=== PATIENT | female | born 1950 | race Caucasian/White ===

== ENCOUNTER 2016-08-27 11:56 | Emergency (ER) | payer OTHER ==
[~2016-08-27] VITALS: Ht 154.9 cm; Wt 71.5 kg
[~2016-08-27 11:56] MED LIST: CLON-412; OMEPRAZOLE
[2016-08-27 12:00] VITALS: Ht 154.9 cm; Wt 71.5 kg
[2016-08-27] MEDS ORDERED: BENZ100C70 PO (14:19)
[2016-08-27] MEDS ORDERED: ACET500C5 PO (14:19)
[2016-08-27] MEDS ORDERED: OSLT75C PO (14:19)
--- NOTE | 2016-08-27 14:52 | ERD ---
ER Documentation Chief Complaint Date/Time DATE: 08/27/16 TIME: 14:49 Chief Complaint pt bib self with flu like symptoms, cough, fever HPI 66-year-old female with a past medical history of hyperlipidemia, breast cancer , gastritis presents to the ED complaining of a dry cough, sore throat, watery eyes. Patient denies taking any medications. Denies any sick contacts. States that coughing makes her chest hurt. Denies any abdominal pain, nausea, vomiting, shortness of breath, wheezing, dyspnea on exertion, orthopnea. ROS All systems reviewed and are negative except as per history of present illness. Medications Home Meds Active Scripts Acetaminophen* (Tylophen*) 500 Mg Capsule, 1 CAP PO Q6H Y for PAIN AND OR ELEVATED TEMP, #20 CAP Prov:ARRON IVERSON-C 08/27/16 Benzonatate* (Tessalon Perle*) 100 Mg Capsule, 100 MG PO Q8H Y for COUGH, #30 CAP Prov:ARRON IVERSON-C 08/27/16 Oseltamivir Phosphate* (Tamiflu*) 75 Mg Capsule, 75 MG PO BID for 5 Days, CAP Prov:ARRON IVERSON-C 08/27/16 Reported Medications Clonazepam* (Klonopin*) 1 Mg Tablet 09/07/10 [Omeprazole] No Conflict Check 06/11/10 Allergies Allergies: Coded Allergies: No Known Allergies (Verified Allergy, Mild, 08/29/13) PMhx/Soc History of Surgery: Yes (L MASTECTOMY, HYSTERECTOMY, C/S) Anesthesia Reaction: No Hx Neurological Disorder: No Hx Respiratory Disorders: No Hx Cardiac Disorders: No Hx Psychiatric Problems: No Hx Miscellaneous Medical Probl: No Hx Alcohol Use: No Hx Substance Use: No Hx Tobacco Use: No Smoking Status: Never smoker Physical Exam Vitals Vital Signs Date Time Temp Pulse Resp B/P Pulse Ox O2 Delivery O2 Flow Rate FiO2 08/27/16 12:00 99.7 113 20 152/98 99 Physical Exam Const: [id number], well-nourished. In no acute distress. Head: Atraumatic, normocephalic Eyes: Normal Conjunctiva without injection. No purulent discharge. PERRL. EOMI ENT: Normal external ear. Ear canal without erythema. Tympanic membrane pearly cannon without effusion or bulging. Nasal canal clear with normal turbinates. Moist oropharynx without tonsillar exudates. Non-erythematous pharynx. Uvula midline. No drooling. No trismus. Neck: Full range of motion. No meningismus. No cervical lymphadenopathy. Resp: Clear to auscultation bilaterally. No wheezing, rhonchi, rales, or crackles. No accessory muscle use. No retractions. Cardio: Regular rate and rhythm. No murmurs, rubs or gallops. Abd: Soft, non tender, non distended. Normal bowel sounds. No palpable masses. No rebound tenderness. No guarding. Skin: No petechiae or rashes Back: No midline tenderness. No CVA tenderness. Ext: No cyanosis, or edema. Neur: Awake and alert. Psych: Normal Mood and Affect Procedures/MDM This is a 66-year-old female with a past medical history of breast cancer, gastritis, hyperlipidemia presents the ED complaining of cough, fever, watery eyes. Patient is afebrile and nontoxic-appearing. Patient has normal vital signs. EKG was ordered to further evaluate patient's tachycardia at 113. EKG reviewed and interpreted by Dr. George Rate/Rhythm: [85 bpm, Normal Sinus Rhythm] No ectopy, no ST elevations, normal axis. QRS, ST, T-waves: [No changes consistent w/ acute ischemia] Impression: [No evidence of ischemia or arrhythmia] This patient presents to the ED with symptoms consistent with a viral acute upper respiratory infection. Patient is afebrile and has normal vital signs. Patient's physical exam include lungs which were clear to auscultation and a normal pulse oximetry. There is a low suspicion for pneumonia, epiglottitis, otitis media, otitis externa, viral/strep pharyngitis, sinusitis, peritonsillar abscess, mastoiditis, retropharyngeal abscess, sepsis, acute abdomen or other emergent conditions. Low suspicion for acute myocardial infarction, pneumothorax , pneumonia, cardiac tamponade, pulmonary embolism, AAA, aortic dissection, Boerhaave's syndrome, cardiac dysrhythmias,meningitis, intracranial bleed, seizure, stroke, TIA or other emergent conditions. Fluids, rest, and symptomatic treatment are recommended for the management of patient's symptoms. Discharge medications: Tamiflu, Tessalon Perles, Tylenol Patient was instructed to return to the ED for any new or worsening symptoms. They should otherwise follow up with the primary care provider within 1-2 days. The patient's questions were answered at the time of discharge. Patient understood and agreed with discharge management. Departure Diagnosis: Primary Impression: Influenza-like symptoms Condition: Stable Patient Instructions: Influenza (Adult) Referrals: [facility] YOU HAVE RECEIVED A MEDICAL SCREENING EXAM AND THE RESULTS INDICATE THAT YOU DO NOT HAVE A CONDITION THAT REQUIRES URGENT TREATMENT IN THE EMERGENCY DEPARTMENT. FURTHER EVALUATION AND TREATMENT OF YOUR CONDITION CAN WAIT UNTIL YOU ARE SEEN IN YOUR DOCTORS OFFICE WITHIN THE NEXT 1-2 DAYS. IT IS YOUR RESPONSIBILITY TO MAKE AN APPOINTMENT FOR FOLOW-UP CARE. IF YOU HAVE A PRIMARY DOCTOR --you should call your primary doctor and schedule an appointment IF YOU DO NOT HAVE A PRIMARY DOCTOR YOU CAN CALL OUR PHYSICIAN REFERRAL HOTLINE AT IF YOU CAN NOT AFFORD TO SEE A PHYSICIAN YOU CAN CHOSE FROM THE FOLLOWING [facility] [address] [facility]. [facility] [address] [facility] [facility] [address] [facility] [facility] [address] [facility] [place] [address] [facility]. [facility]. [address] [facility]. [facility] YOU HAVE RECEIVED A MEDICAL SCREENING EXAM AND THE RESULTS INDICATE THAT YOU DO NOT HAVE A CONDITION THAT REQUIRES URGENT TREATMENT IN THE EMERGENCY DEPARTMENT. FURTHER EVALUATION AND TREATMENT OF YOUR CONDITION CAN WAIT UNTIL YOU ARE SEEN IN YOUR DOCTORS OFFICE WITHIN THE NEXT 1-2 DAYS. IT IS YOUR RESPONSIBILITY TO MAKE AN APPOINTMENT FOR FOLOW-UP CARE. IF YOU HAVE A PRIMARY DOCTOR --you should call your primary doctor and schedule and appointment IF YOU DO NOT HAVE A PRIMARY DOCTOR YOU CAN CALL OUR PHYSICIAN REFERRAL HOTLINE AT . IF YOU CAN NOT AFFORD TO SEE A PHYSICIAN YOU CAN CHOSE FROM THE FOLLOWING [facility] INSTITUTIONS: [facility] [address] [place] [address] [facility] [address] [place] [address] [facility] + [facility] [address] [place] [address] [facility]CIALT[facility] Additional Instructions: Llame al doctor MAANA y nely gerda JENNIFFER PARA DENTRO DE 1-2 KITCHEN.Dgale a la secretaria que nosotros le instruimos hacer esta jenniffer.Avise o llame si castanon condicin se empeora antes de la jenniffer. Regresa aqui si peor o no mejor. ARRON IVERSON PA-C Aug 27, 2016 14:52
[2016-08-27 14:53] VITALS: BP 127/72; PULSE 89; RESP 18; TEMP 99.2
== END 2016-08-27 14:55 | disposition home or self-care (01) ==
LOC: FTE 11:56
DX: J06.9 Acute upper respiratory infection, unspecified (principal); R07.9 Chest pain, unspecified; R05 Cough; Z85.3 Personal history of malignant neoplasm of breast
CPT/HCPCS: 93005; Z7502; 99284

== ENCOUNTER 2017-04-12 14:13 | Emergency (ER) | payer MEDICARE, OTHER ==
[~2017-04-12] VITALS: Wt 73.0 kg
[~2017-04-12 14:13] MED LIST changes: +ACET500C5 PO; +BENZ100C70 PO; +OSLT75C PO
[2017-04-12] MEDS ORDERED: LIDOCAINE/MYLANTA 40 ML BTL PO ONE (15:30)
--- NOTE | 2017-04-12 15:57 | ERD ---
ER Documentation Chief Complaint Date/Time DATE: 04/12/17 TIME: 15:46 Chief Complaint epgastric pain s/p cough syrup HPI This 66-year-old female presents with what she believes is an allergic reaction to Cheratussin AC cough syrup. She was prescribed by her doctor yesterday and took it for the first time this morning after which she experienced epigastric pain described as a burning sensation. The pain has since subsided but she still has a small amount of residual pain. This is not associated with shortness of breath nausea or vomiting. She does not believe that she has ever taken codeine. She has excellent primary care follow-up and states that she can see her primary care doctor whenever she wishes.She has no history of cardiac problems. ROS All systems reviewed and are negative except as per history of present illness. Medications Home Meds Active Scripts Acetaminophen* (Tylophen*) 500 Mg Capsule, 1 CAP PO Q6H Y for PAIN AND OR ELEVATED TEMP, #20 CAP Prov:ARRON IVERSON-Danuta 08/27/16 Benzonatate* (Tessalon Perle*) 100 Mg Capsule, 100 MG PO Q8H Y for COUGH, #30 CAP Prov:ARRON IVERSON-C 08/27/16 Oseltamivir Phosphate* (Tamiflu*) 75 Mg Capsule, 75 MG PO BID for 5 Days, CAP Prov:ARRON IVERSON-C 08/27/16 Reported Medications Clonazepam* (Klonopin*) 1 Mg Tablet 09/07/10 [Omeprazole] No Conflict Check 06/11/10 Allergies Allergies: Coded Allergies: No Known Allergies (Verified Allergy, Mild, 08/29/13) PMhx/Soc History of Surgery: Yes (L MASTECTOMY, HYSTERECTOMY, C/S) Anesthesia Reaction: No Hx Neurological Disorder: No Hx Respiratory Disorders: No Hx Cardiac Disorders: No Hx Psychiatric Problems: No Hx Miscellaneous Medical Probl: No Hx Alcohol Use: No Hx Substance Use: No Hx Tobacco Use: No Smoking Status: Never smoker Physical Exam Vitals Vital Signs Date Time Temp Pulse Resp B/P Pulse Ox O2 Delivery O2 Flow Rate FiO2 04/12/17 14:29 98.0 72 20 130/75 98 Physical Exam Const: [] No distress, sitting in chair, calm and pleasant. Head: Atraumatic Eyes: Normal Conjunctiva ENT: Normal External Ears, Nose and Mouth. Neck: Full range of motion..~ No meningismus. Resp: Clear to auscultation bilaterally Cardio: Regular rate and rhythm, no murmurs Abd: Soft, non tender, non distended. Normal bowel sounds Skin: No petechiae or rashes Ext: No cyanosis, or edema Neur: Awake and alertAnd oriented 3, no focal deficits Psych: Normal Mood and Affect Results 24 hrs Current Medications Medications (Trade) Dose Ordered Sig/Snehal Route PRN Reason Start Time Stop Time Status Last Admin Dose Admin Miscellaneous Medication (Gi Cocktail (2)) 40 ml ONCE ONCE PO 04/12/17 15:30 04/12/17 15:31 DC 04/12/17 15:23 Procedures/MDM 66-year-old female presents with resolved epigastric pain a few minutes after taking Cheratussin cough syrup. States that she otherwise had no symptoms and feels well. Was given a GI cocktail in the emergency room which led to resolution of her pain. Going to discharge with primary care follow-up and instructions to obtain echocardiogram within the next week. Instructed her to call her doctor today to inform her of the reaction. She does not wish to have any further workup. Instructing her to discontinue Cheratussin cough syrup. Return precautions given for any return of the pain. EKG interpretation: Normal sinus rhythm at 65, normal axis, no ST or T-wave changes concerning for acute ischemia, normal intervals. Normal EKG. Departure Diagnosis: Primary Impression: Epigastric pain Condition: Stable SURIBILLIEANTONIO DO Apr 12, 2017 15:57
[2017-04-12 16:29] VITALS: BP 127/77; PULSE 70; RESP 17; TEMP 97.9
== END 2017-04-12 16:30 | disposition home or self-care (01) ==
LOC: FTE 14:13
DX: R10.13 Epigastric pain (principal)
CPT/HCPCS: 93005